=== PATIENT | female | born 1940 | race Caucasian/White ===

== ENCOUNTER 2020-02-22 09:38 | Emergency (ER) | payer OTHER ==
[~2020-02-22] VITALS: Ht 157.5 cm; Wt 48.1 kg
[~2020-02-22 09:38] MED LIST: SYNTHROID
[2020-02-22 10:20] LABS: ABSOLUTE NEUTROPHILS 4.2 thou/uL (1.4-8.2); BASOPHILS 0.9 % (0.0-2.0); EOSINOPHILS 1.2 % (0.0-3.0); HEMATOCRIT 41.4 % (37.0-47.0); HEMOGLOBIN 13.8 gm/dL (12.0-15.0); LYMPHOCYTES 19.1 % (24.0-44.0); MCH 31.9 pg (26.0-34.0); MCHC 33.4 g/dL (28.0-37.0); MCV 95.6 fL (80.0-100.0); MONOCYTES 9.5 % (1.0-8.0); PLATELET COUNT 192 thou/uL (150-400); POLYS 69.3 % (36.0-66.0); RBC 4.33 mil/uL (4.20-5.00); RDW 13.5 % (10.5-14.5)
[2020-02-22 10:27] LABS: ANION GAP 5 mmol/L (7-16); BUN 14 mg/dL (7-18); CALCIUM 9.1 mg/dL (8.5-10.1); CHLORIDE 103 mmol/L (98-107); CO2 29 mmol/L (21-32); CREATININE 0.9 mg/dL (0.6-1.0); GLUCOSE 109 mg/dL (74-106); POTASSIUM 3.9 mmol/L (3.5-5.1); SODIUM 137 mmol/L (136-145)
[2020-02-22 10:36] LABS: ALBUMIN 3.5 g/dL (3.4-5.0); SGOT 23 U/L (15-37); SGPT 43 U/L (30-65); TOTAL BILIRUBIN 0.4 mg/dL (<0.1-1.0); TOTAL PROTEIN 7.9 g/dL (6.4-8.2); TROPONIN-I <0.06 ng/mL (<0.06)
[2020-02-22] MEDS ORDERED: IBANDRONATE SO150 MG PO (11:12)
[2020-02-22] MEDS ORDERED: LIPITOR10 MG PO (11:13)
[2020-02-22] MEDS ORDERED: RESTASIS1 EACH OPHTHALMIC (11:13)
[2020-02-22] MEDS ORDERED: CALCIUM500 MG PO (11:14)
[2020-02-22] MEDS ORDERED: SUPER THERAVIT1 EACH PO (11:14)
[2020-02-22 11:18] VITALS: BP 129/69
--- NOTE | 2020-02-22 13:01 | EKG ---
[facility] [place] [address] ELECTROCARDIOGRAM REPORT Name: JACEKEVIN Room #: DEP MDarylRDaryl#: [id number] Admission: 02/22/20 Attend Phys: Discharge: 02/22/20 Date of : 44 Report #: [id number] THIS REPORT FOR: cc: FAM - Family physician unknown FAM - Family physician unknown Ishan Patel MD [facility] ~ THIS REPORT FOR: //name// [facility] ED Test Date: 2020-02-22 Test Time: 10:08:26 Pat Name: KEVIN MCCORMICK Department: Room: Gender: F Delivery Associate: [place] : 1940 Requested By: Shekhar Lawler Order Number: [id number] MD: Ishan Patel Measurements Intervals [place] Rate: 65 P: 59 HI: 160 QRS: 48 QRSD: 103 T: 59 QT: 373 QTc: 388 Interpretive Statements Sinus rhythm RSR' in V1 or V2, probably normal variant No previous ECG available for comparison Electronically Signed On 02-22-2020 12:59:14 CDT by Ishan Patel [email or web address] <ELECTRONICALLY SIGNED> By: Ishan Patel MD, [facility] 02/22/20 1259 1008 07 Ishan Patel MD, FACC /EPI
== END 2020-02-22 11:18 | disposition home or self-care (01) ==
LOC: ER 09:38
PROVIDERS: Emergency Medicine
DX: R06.02 Shortness of breath (principal); R07.9 Chest pain, unspecified; Z79.899 Other long term (current) drug therapy; Z90.710 Acquired absence of both cervix and uterus

== ENCOUNTER → 2020-02-24 | Outpatient (CLI) | payer OTHER, BC ==
[~2020-02-24] MED LIST changes: +CALCIUM500 MG PO; +IBANDRONATE SO150 MG PO; +LIPITOR10 MG PO; +RESTASIS1 EACH OPHTHALMIC; +SUPER THERAVIT1 EACH PO
== END ==
LOC: SJCVCIMAG 08:22
DX: I08.1 Rheumatic disorders of both mitral and tricuspid valves (principal)

== ENCOUNTER → 2020-05-08 | Outpatient (CLI) | payer OTHER, BC | LOC: RAD 14:38 | PROVIDERS: ATTEND Specialist | DX: K59.00 Constipation, unspecified (principal); R14.3 Flatulence ==